=== PATIENT | female | born 1985 | race Two or more races ===

== ENCOUNTER 2019-09-21 23:35 | Emergency (ER) | payer MEDICAID, OTHER ==
[~2019-09-21] VITALS: Ht 170.2 cm; Wt 108.9 kg
[2019-09-22] MEDS ORDERED: ACETAMINOPHEN 325 MG TAB PO ONE (01:45)
[2019-09-22 01:58] LABS: Basophils # (auto) 0 10 ^3/uL (0-0.2); Basophils % (auto) 0.6 % (0.0-2.0); Eosinophils # (auto) 0 10 ^3/uL (0-0.8); Eosinophils % (auto) 0.1 % (0.0-7.0); Hematocrit 44.4 % (36.0-46.0); Hemoglobin 14.7 g/dL (12.2-16.2); Lymphocytes # (auto) 1.1 10 ^3/uL (0.4-5.4); Mean Corpuscular Hemoglobin 29.9 pg (28.0-32.0); Mean Corpuscular Hgb Conc. 33.2 g/dL (32.0-36.0); Mean Corpuscular Volume 90.3 fL (80.0-100.0); Monocytes # (auto) 0.2 10 ^3/uL (0-1.3); Monocytes % (auto) 4.9 % (0.0-12.0); Neutrophils # (auto) 3.5 10 ^3/uL (1.6-8.6); Neutrophils % (auto) 71.4 % (37.0-80.0); Nucleated Red Blood Cells % 0.1 %; Platelet Count (auto) 257 10^3/uL (140-450); Red Blood Cells 4.92 10^6/uL (4.0-5.20); Red Cell Distribution Width 12.3 % (11.8-14.3); White Blood Cell 4.9 10^3/uL (4.4-10.8)
[2019-09-22 02:08] LABS: Urine Bacteria FEW /hpf (None Seen); Urine Blood 3+ /uL (Negative); Urine Mucus FEW (None Seen); Urine WBC 49 /hpf (0 - 5)
[2019-09-22 02:17] LABS: Alanine Aminotransferase 34 U/L (13-56); Albumin 3.3 g/dL (3.4-5.0); Anion Gap 7 (5-15); Aspartate Aminotransferase 27 U/L (15-37); BUN/Creatinine Ratio 10.3; Blood Urea Nitrogen 9 mg/dL (7-18); Calcium 8.1 mg/dL (8.5-10.1); Carbon Dioxide 23 mmol/L (21-32); Chloride 106 mmol/L (98-107); GFR African American 95 mL/min; GFR Non-African American 78 mL/min; Glucose 114 mg/dL (74-106); Magnesium 2.5 mg/dL (1.6-2.6); Potassium 3.3 mmol/L (3.5-5.1); Sodium 136 mmol/L (136-145)
[2019-09-22 02:22] LABS: Alkaline Phosphatase 57 U/L (45-117); Bilirubin, Total 0.4 mg/dL (0.2-1.0); Total Protein 7.9 g/dL (6.4-8.2)
[2019-09-22 02:24] LABS: INR 1.13 (0.9-1.15); Partial Thromboplastin Time 34.2 sec (23.64-32.05)
[2019-09-22 04:30] VITALS: BP 125/72
== END 2019-09-22 05:43 | disposition home or self-care (01) ==
LOC: ER 23:35
DX: U07.1 COVID-19 (principal); J02.0 Streptococcal pharyngitis; J01.00 Acute maxillary sinusitis, unspecified
CPT/HCPCS: 36415; 71045; 80053; 81001; 82728; 83735; 83880; 84484; 85025; 85379; 85610; 85730; 87804; 87880; 99284; J7030; U0003

== ENCOUNTER 2019-09-24 21:07 | Inpatient (IN) | payer MEDICAID ==
[~2019-09-24] VITALS: Ht 170.2 cm; Wt 111.5 kg
[2019-09-25 06:00] LABS: Basophils # (auto) 0 10 ^3/uL (0-0.2); Basophils % (auto) 0.5 % (0.0-2.0); Eosinophils # (auto) 0.1 10 ^3/uL (0-0.8); Eosinophils % (auto) 1.6 % (0.0-7.0); Lymphocytes # (auto) 2.2 10 ^3/uL (0.4-5.4); Lymphocytes % (auto) 47.8 % (10.0-50.0); Mean Corpuscular Hemoglobin 30.6 pg (28.0-32.0); Mean Corpuscular Hgb Conc. 34.2 g/dL (32.0-36.0); Mean Corpuscular Volume 89.4 fL (80.0-100.0); Monocytes # (auto) 0.4 10 ^3/uL (0-1.3); Monocytes % (auto) 9.3 % (0.0-12.0); Neutrophils # (auto) 1.9 10 ^3/uL (1.6-8.6); Neutrophils % (auto) 40.8 % (37.0-80.0); Nucleated Red Blood Cells % 0.1 %; Platelet Count (auto) 299 10^3/uL (140-450); Red Blood Cells 4.91 10^6/uL (4.0-5.20); Red Cell Distribution Width 11.9 % (11.8-14.3); White Blood Cell 4.7 10^3/uL (4.4-10.8)
[2019-09-25 06:17] LABS: Albumin 3.6 g/dL (3.4-5.0); Calcium 8.8 mg/dL (8.5-10.1); Potassium 3.5 mmol/L (3.5-5.1)
[2019-09-25 06:20] LABS: BUN/Creatinine Ratio 9.9; Bilirubin, Total 0.4 mg/dL (0.2-1.0); Total Protein 8.5 g/dL (6.4-8.2)
[2019-09-25] MEDS ORDERED: DexAMETHasone SOD PHOS 10MG/1ML VIAL INJ IV ONE (06:30)
[2019-09-25] MEDS ORDERED: DOXYCYCLINE 100MG/250ML 250 ML IV ONE (06:30)
[2019-09-25] MEDS ORDERED: ACETAMINOPHEN 500 MG TAB PO PRN (06:45)
[2019-09-25] MEDS ORDERED: ONDANSETRON HCL 4 MG/2 ML VIAL IV PRN (06:45)
[2019-09-25] MEDS ORDERED: MORPHINE SULF INJ 2 MG/ML SYRINGE 1ML IV PRN (06:45)
[2019-09-25] MEDS ORDERED: NITROGLYCERIN 0.4 MG SL TAB SL PRN (06:45)
[2019-09-25 07:52] LABS: Magnesium 2.6 mg/dL (1.6-2.6)
[2019-09-25 08:01] LABS: CRP High Sensitivity 2.08 mg/dL (< 0.3)
--- NOTE | 2019-09-25 08:55 | NUR ---
Telemetry admit from ER LOPEZ SIMEON admitted to Telemetry unit after SBAR received. Patient oriented to NEREIDA SULLIVAN RN primary RN, unit, room, bed, and unit policies regarding patient care and visiting hours. Patient now on continuous telemetry monitoring, tele box # [id number] and telemetry reading on arrival to unit is SR. Patient placed on bedside oxygen, weighed by bedscale and encouraged to call if they need something. All questions and concerns addressed, patient verbalized understanding.
[2019-09-25] MEDS: CHOLECALCIFEROL (VITD3) 2,000 UNIT CAP PO SCH (11:10)
[2019-09-25] MEDS: FAMOTIDINE 20 MG TAB PO SCH ×2 (11:10→21:43)
[2019-09-25] MEDS: ZINC SULFATE 220mg CAP or TAB PO SCH (11:10)
[2019-09-25] MEDS: ASCORBIC ACID 1,000 MG TAB PO SCH (11:11)
[2019-09-25] MEDS: ENOXAPARIN SOD 40 MG/0.4 ML SYRINGE SC SCH (11:11)
[2019-09-25 13:00] VITALS: BP 123/82
[2019-09-25] MEDS ORDERED: CEPH250C2 PO (13:08)
[2019-09-25] MEDS ORDERED: AZIT500T66 PO (13:08)
[2019-09-25 17:41] VITALS: BP 107/67
--- NOTE | 2019-09-25 19:25 | NUR ---
Opening Shift Note Assumed care of patient, awake and alert. No S/S of distress/SOB or pain. Bed is locked in lowest position with call light within reach. Patient is currently on RA. Instructed on POC and to call for assist PRN, will continue to monitor for changes Q1hr and PRN.
[2019-09-25 21:15] LABS: Urine Bacteria NONE SEEN /hpf (None Seen); Urine Blood Negative /uL (Negative); Urine Mucus FEW (None Seen); Urine Specific Gravity 1.029 (1.001-1.035); Urine WBC 16 /hpf (0 - 5)
[2019-09-25] MEDS: TEMAZEPAM 15 MG CAP PO PRN (21:43)
[2019-09-25] MEDS: DOXYCYCLINE 100MG/250ML 250 ML IV SCH (21:43)
[2019-09-25 22:00] VITALS: BP 119/70
[2019-09-26 05:03] VITALS: BP 122/80
--- NOTE | 2019-09-26 06:05 | NUR ---
HOSPITALIST PAGED The patient c/o excessive coughing and states that her oxygen decreases whenever she coughs too much. The patient's oxygen saturation was 99% while the patient coughed. Will page the hospitalist for antitussive.
--- NOTE | 2019-09-26 06:55 | NUR ---
HOSPITALIST PAGE BACK Received new order for Robitussin DM 10 mg Q6HPRN.
[2019-09-26] MEDS ORDERED: guaiFENesin-DM 100/10mg/5ml SYR PO PRN (07:00)
--- NOTE | 2019-09-26 08:00 | NUR ---
ASSESSMENT NOTE PT IS ALERT ORIENTED X4, RESTING IN BED COMFORTABLY IN LOW HILL POSITION, ABLE TO SELF REPOSITION AND VERBALIS HER DEMANDS, OXYGEN 2 L NC, NON PRODUCTIVE OCCASIONAL COUGH NOTED, PAIN 0/10, CONTINUE TO HAVE LOSS OF TASTE AND SMELL, CALL LIGHT WITHIN REACH
[2019-09-26 08:33] VITALS: BP 107/63
[2019-09-26] MEDS: DexAMETHasone SOD PHOS 10MG/1ML VIAL INJ IV SCH (09:30)
[2019-09-26] MEDS: DOXYCYCLINE 100MG/250ML 250 ML IV SCH ×2 (09:30→22:12)
[2019-09-26] MEDS: ZINC SULFATE 220mg CAP or TAB PO SCH (09:31)
[2019-09-26] MEDS: ASCORBIC ACID 1,000 MG TAB PO SCH (09:31)
[2019-09-26] MEDS: FAMOTIDINE 20 MG TAB PO SCH ×2 (09:31→22:12)
[2019-09-26] MEDS: CHOLECALCIFEROL (VITD3) 2,000 UNIT CAP PO SCH (09:32)
[2019-09-26] MEDS: ENOXAPARIN SOD 40 MG/0.4 ML SYRINGE SC SCH (09:32)
[2019-09-26 09:36] LABS: Basophils # (auto) 0.2 10 ^3/uL (0-0.2); Basophils % (auto) 2.5 % (0.0-2.0); Eosinophils # (auto) 0 10 ^3/uL (0-0.8); Eosinophils % (auto) 0.2 % (0.0-7.0); Hematocrit 40.8 % (36.0-46.0); Hemoglobin 13.9 g/dL (12.2-16.2); Lymphocytes # (auto) 1.8 10 ^3/uL (0.4-5.4); Lymphocytes % (auto) 28.1 % (10.0-50.0); Mean Corpuscular Hemoglobin 30.2 pg (28.0-32.0); Mean Corpuscular Hgb Conc. 34.1 g/dL (32.0-36.0); Mean Corpuscular Volume 88.5 fL (80.0-100.0); Monocytes # (auto) 0.5 10 ^3/uL (0-1.3); Monocytes % (auto) 7.2 % (0.0-12.0); Nucleated Red Blood Cells % 0.1 %; Platelet Count (auto) 335 10^3/uL (140-450); Red Blood Cells 4.61 10^6/uL (4.0-5.20); Red Cell Distribution Width 11.9 % (11.8-14.3); White Blood Cell 6.5 10^3/uL (4.4-10.8)
[2019-09-26 10:01] LABS: Albumin 3.2 g/dL (3.4-5.0); Calcium 8.8 mg/dL (8.5-10.1); Potassium 3.5 mmol/L (3.5-5.1)
[2019-09-26 10:06] LABS: BUN/Creatinine Ratio 12.5; Bilirubin, Total 0.3 mg/dL (0.2-1.0); Total Protein 7.8 g/dL (6.4-8.2)
--- NOTE | 2019-09-26 10:30 | NUR ---
INCENTIVE SPIROMETR EDUCATION GIVEN TO PT, ABLE TO DEMONSTRATED BACK, AWARE TO DO IT 10X / HR, EXPLAIN TO PT WHY, VERBALIS UNDERSTANDING
--- NOTE | 2019-09-26 11:10 | NUR ---
IV insertion IV access obtained, via clean sterile technique by inserting 22 gauge catheter at after attempt(s). IV secured properly. No trauma to site. Patient tolerated procedure well.
[2019-09-26 12:54] VITALS: BP 117/78
[2019-09-26] MEDS ORDERED: POTASSIUM CHL 10 Meq TABLET PO ONE (14:30)
[2019-09-26] MEDS ORDERED: FUROSEMIDE 20 MG/2 ML VIAL IV ONE (14:30)
[2019-09-26] MEDS ORDERED: DEXTROSE (50%) 50ML SYRG IV PRN (14:45)
--- NOTE | 2019-09-26 14:50 | NUR ---
DR MOTA OVER THE PHONE WITH PT
--- NOTE | 2019-09-26 15:04 | NUR ---
ECG DONE SR
--- NOTE | 2019-09-26 16:30 | NUR ---
PT WAS ABLE TO AMBULATE TO BATHROOM STEADY GAIT, WITHOUT OXYGEN, NO SHORTNESS OF BREATH NOTED, THEN BACK TO BED
[2019-09-26 17:00] VITALS: BP 123/74
[2019-09-26] MEDS: InsuLIN REG 1unit/0.01ml Soln (100units/ml) SC SCH ×2 (17:00→22:00)
[2019-09-26] MEDS: ACCU-CHEK COMFORT CURVE STRIP VI SCH ×2 (17:36→22:12)
--- NOTE | 2019-09-26 18:54 | NUR ---
PT CONTINUE STABLE, occasional cough note, CONTINUE MONITORING
--- NOTE | 2019-09-26 19:20 | NUR ---
Opening Shift Note Assumed care of patient, awake and alert. No S/S of distress/SOB or pain. Patient is currently on RA. Bed is locked in lowest position with call light within reach. Instructed on POC and to call for assist PRN, will continue to monitor for changes Q1hr and PRN.
[2019-09-26 22:00] VITALS: BP 110/69
--- NOTE | 2019-09-26 22:05 | NUR ---
MEDICATION REFUSED The patient refused her scheduled insulin. The patient's glucose level is 196
[2019-09-26] MEDS: BUDESONIDE (INHALATION) 180 MCG IH IN SCH (22:30)
[2019-09-26] MEDS: ALBUTEROL SULF HFA 90MCG INH 200DOSE IN SCH (22:30)
[2019-09-27] VITALS (7 sets, daily range): BP systolic 102–118; BP diastolic 59–70
--- NOTE | 2019-09-27 | NUR ---
IV REMOVED The patient reported pain at her right hand IV site. IV site was flushed without additional pain but the patient stated that she wants it out. IV has been removed. Will insert a new IV.
--- NOTE | 2019-09-27 00:15 | NUR ---
IV insertion IV access obtained, via clean sterile technique by inserting 22 gauge catheter at left hand after 2 attempt(s). IV secured properly. No trauma to site. Patient tolerated well.
[2019-09-27] MEDS: BUDESONIDE (INHALATION) 180 MCG IH IN SCH ×2 (06:00→22:00)
[2019-09-27] MEDS: ALBUTEROL SULF HFA 90MCG INH 200DOSE IN SCH ×3 (06:00→22:00)
[2019-09-27] MEDS: InsuLIN REG 1unit/0.01ml Soln (100units/ml) SC SCH ×4 (07:00→22:00)
[2019-09-27] MEDS: ACCU-CHEK COMFORT CURVE STRIP VI SCH ×4 (07:00→22:21)
[2019-09-27] MEDS: DOXYCYCLINE 100MG/250ML 250 ML IV SCH ×2 (09:20→22:34)
[2019-09-27] MEDS: CHOLECALCIFEROL (VITD3) 2,000 UNIT CAP PO SCH (09:23)
[2019-09-27] MEDS: FUROSEMIDE 20 MG/2 ML VIAL IV SCH (09:23)
[2019-09-27] MEDS: POTASSIUM CHL 10 Meq TABLET PO SCH (09:23)
[2019-09-27] MEDS: ASCORBIC ACID 1,000 MG TAB PO SCH (09:23)
[2019-09-27] MEDS: DexAMETHasone SOD PHOS 10MG/1ML VIAL INJ IV SCH (09:23)
[2019-09-27] MEDS: ZINC SULFATE 220mg CAP or TAB PO SCH (09:24)
[2019-09-27] MEDS: FAMOTIDINE 20 MG TAB PO SCH ×2 (09:24→22:34)
[2019-09-27] MEDS: ENOXAPARIN SOD 40 MG/0.4 ML SYRINGE SC SCH (09:25)
--- NOTE | 2019-09-27 12:30 | NUR ---
Respiratory note: ABG NOT DONE. SPO2 IS 100% ON ROOM AIR AFTER AMBULATING PATIENT. RN AWARE
--- NOTE | 2019-09-27 13:19 | NUR ---
pt seen by Dr. Prince, made aware ABG was not done, pt's O2 sat was 100% room air after a walk. Dr. Prince told pt she can go home but pt requested to stay 1 more day.
--- NOTE | 2019-09-27 19:15 | NUR ---
Opening Shift Note Assumed care of patient. Patient is awake, alert, and oriented x 4. No S/S of respiratory distress/SOB and pain noted or reported. Respirations are regular and non-labored. On RA with SpO2 96%. Bed in lowest position, brakes locked, side rail up X 2, call light within reach. POC discussed with the patient. Patient instructed to call for assistance as needed. Will continue to monitor for changes Q1hr and PRN.
--- NOTE | 2019-09-27 22:30 | NUR ---
Refused med Patient refused insulin injection for blood glucose level of 175 mg/dl. Patient was educated about high blood glucose level complications and importance of insulin injections to decrease glucose level. Patient refused saying that level is not high and she will get insulin injection if her blood glucose level will be above 200 mg/dl.
[2019-09-27] MEDS: TEMAZEPAM 15 MG CAP PO PRN (22:35)
--- NOTE | 2019-09-27 23:40 | NUR ---
IV DC/insertion Patient reports pain and burning at insertion site. L hand IV DC'd with sterile technique, catheter fully intact. Pressure dressing applied to site. Patient tolerated procedure well. New IV access obtained via clean sterile technique by inserting 24 gauge catheter at R. hand after 1 attempt. IV secured properly. No trauma to site. Patient tolerated procedure well. Will continue to monitor PRN.
[2019-09-28 05:00] VITALS: BP 116/76
[2019-09-28] MEDS: ACCU-CHEK COMFORT CURVE STRIP VI SCH ×2 (06:15→11:30)
[2019-09-28] MEDS: InsuLIN REG 1unit/0.01ml Soln (100units/ml) SC SCH ×2 (06:25→11:30)
[2019-09-28] MEDS: ALBUTEROL SULF HFA 90MCG INH 200DOSE IN SCH ×3 (06:47→14:08)
[2019-09-28] MEDS: BUDESONIDE (INHALATION) 180 MCG IH IN SCH (07:09)
[2019-09-28 08:55] VITALS: BP 103/63
[2019-09-28] MEDS: ZINC SULFATE 220mg CAP or TAB PO SCH (09:37)
[2019-09-28] MEDS: DexAMETHasone SOD PHOS 10MG/1ML VIAL INJ IV SCH (09:37)
[2019-09-28] MEDS: DOXYCYCLINE 100MG/250ML 250 ML IV SCH (09:37)
[2019-09-28] MEDS: FAMOTIDINE 20 MG TAB PO SCH (09:38)
[2019-09-28] MEDS: POTASSIUM CHL 10 Meq TABLET PO SCH (09:38)
[2019-09-28] MEDS: CHOLECALCIFEROL (VITD3) 2,000 UNIT CAP PO SCH (09:38)
[2019-09-28] MEDS: FUROSEMIDE 20 MG/2 ML VIAL IV SCH (09:38)
[2019-09-28] MEDS: ASCORBIC ACID 1,000 MG TAB PO SCH (09:38)
[2019-09-28] MEDS: ENOXAPARIN SOD 40 MG/0.4 ML SYRINGE SC SCH (11:04)
[2019-09-28 13:08] VITALS: BP 112/71
--- NOTE | 2019-09-28 16:08 | NUR ---
Discharge instructions given as ordered. Encourage to follow up with PMD as instructed. Instructed to follow up with pcp in 2 weeks. Instructed to self-isolate and take all medications as M.D. orders.All questions and concerns addressed. Patient verbalized understanding. Medication reconciliation form completed and copy given to patient. IV removed with catheter intact, pressure dressing applied. Telemetry unit returned to ICU. Patient taken to vehicle via wheelchair with all personal belongings, accompanied by staff and family member. No distress noted at time of departure.
== END 2019-09-28 16:15 | disposition home or self-care (01) | DRG 137 ==
LOC: ER 21:07 → TELE 21:08 → TELE-EAST 09-25 09:10
PROVIDERS: ADMIT Nurse Practitioner; ATTEND Internal Medicine
DX: U07.1 COVID-19 (principal); J12.89 Other viral pneumonia; J01.00 Acute maxillary sinusitis, unspecified; E03.9 Hypothyroidism, unspecified; J96.00 Acute respiratory failure, unspecified whether with hypoxia or hypercapnia; E66.9 Obesity, unspecified; Z68.38 Body mass index [BMI] 38.0-38.9, adult; Z88.5 Allergy status to narcotic agent
CPT/HCPCS: 36415; 71045; 80053; 81001; 82728; 82962; 83605; 83615; 83735; 84443; 85025; 85379; 86141; 94640; 96365; 96372; 96375; G0378; J1100; J3490

== ENCOUNTER 2024-01-12 03:15 | Emergency (ER) | payer BC, MEDICAID ==
[~2024-01-12] VITALS: Ht 167.6 cm; Wt 117.8 kg
[~2024-01-12 03:15] MED LIST: AZIT500T66 PO; CEPH250C2 PO
--- NOTE | 2024-01-12 04:37 | ED.PDOC ---
Eye-HPI HPI Comments This is a 38-year-old female presents to the ED chief complaint of cold-like symptoms x4 days. Patient reports cough, sore throat, runny nose, shortness of breath, and subjective fevers at home. She reports history of pneumonia in the past. She states also history of fluid in her lungs. She reports when she lays down she gave comes more short of breath. 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 She denies dyspnea on exertion, chest pain, recent travel, abdominal pain, nausea or vomiting. Chief Complaint: Flu like Time Seen by MD: 03:33 Primary Care Provider: CARTER Reviewed Notes: Nurses Notes, Medications, Allergies Allergies: Coded Allergies: Morphine (Verified Allergy, Unknown, 09/25/19) No Known Drug Allergy (Verified Allergy, Unknown, 09/25/19) Home Meds Active Scripts Methylprednisolone (Medrol Dosepak) 4 Mg Basil, 4 MG PO UD for 6 Days, #21 TAB UAD Prov:SALTY PAULSON [facility] 01/12/24 Azithromycin (Azithromycin) 250 Mg Tab, 250 MG PO DAILY MDD 500 for 5 Days, #6 TAB 0 Refills 2 TABLETS ORALLY ON DAY ONE, THEN 1 TABLET ORALLY DAILY FOR 4 DAYS Prov:SALTY PAULSON [facility] 01/12/24 Reported Medications Cephalexin Base (Cephalexin) 250 Mg Cap, 250 MG PO Q12HP, MG 09/25/19 Azithromycin (Azithromycin) 500 Mg Tab, 500 MG PO DAILY 09/25/19 Information Source: Patient Mode of Arrival: Ambulatory Past Medical History PAST MEDICAL HISTORY: Denies Surgical History: Denies all surgeries STOCK ORDER LISTER History: No Pertinent STOCK ORDER LISTER History Family History Family History: Reviewed,noncontributory to illness Social History Smoker: Non-Smoker Alcohol: Denies ETOH Use Drugs: Denies Drug Use Lives In: Home Constitutional: reports: chills, fever; denies: diaphoresis, fatigue, malaise, sweats, weakness, others EENTM: reports: nasal discharge, throat pain; denies: blurred vision, double vision, ear bleeding, ear discharge, ear drainage, ear pain, ear ringing, eye pain, eye redness, hearing loss, mouth pain, mouth swelling, nose bleeding, nose congestion, nose pain, photophobia, tearing, throat swelling, voice changes, others Respiratory: reports: cough; denies: hemoptysis, orthopnea, SOB at rest, shortness of breath, SOB with excertion, stridor, wheezing, others Cardiovascular: denies: chest pain, dizzy spells, diaphoresis, Dyspnea on exertion, edema, irregular heart beat, left arm pain, lightheadedness, palpitations, PND, syncope, others Gastrointestinal: denies: abdomen distended, abdominal pain, blood streaked bowels, constipated, diarrhea, dysphagia, difficulty swallowing, hematemesis, melena, nausea, poor appetite, poor fluid intake, rectal bleeding, rectal pain, vomiting, others Genitourinary: denies: abnormal vagina bleeding, burning, dyspareunia, dysuria, flank pain, frequency, hematuria, incontinence, pain, , vagina discharge, urgency, others Neurological: denies: dizziness, fainting, headache, left sided numbness, left sided weakness, numbness, paresthesia, pre-existing deficit, right sided numbness, right sided weakness, seizure, speech problems, tingling, tremors, weakness, others Musculoskeletal: denies: back pain, gout, joint pain, joint swelling, muscle pain, muscle stiffness, neck pain, others Integumetry: denies: bruises, change in color, change in hair/nails, dryness, laceration, lesions, lumps, rash, wounds, others Allergic/Immunocompromised: denies: Difficulty Healing, Frequent Infections, H brennon, Itching, others Hematologic/Lymphatic: denies: anemia, blood clots, easy bleeding, easy bruising, swollen glands, others Endocrine: denies: excessive hunger, excessive sweating, excessive thirst, excessive urination, flushing, intolerance to cold, intolerance to heat, unexplained weight gain, unexplained weight loss, others Psychiatric: denies: anxiety, bipolar disorder, depression, hopeless, panic disorder, schizophrenia, sleepless, suicidal, others Physical Exam General Appearance: No Apparent Distress, Normal HEENT: Normal ENT Inspection, Pharyngeal Erythema, TMs Normal, Other (Bilateral nasal greenish discharge) Neck: Full Range of Motion, Non-Tender Respiratory: Decreased Breath Sounds, No Accessory Muscle Use, No Respiratory Distress Cardiovascular: No Edema, No JVD, No Murmur, No Gallop, Normal Peripheral Pulses, Regular Rate/Rhythm Breast Exam: Deferred Gastrointestinal: Non Tender, Soft Genitalia: Deferred Pelvic: Deferred Rectal: Deferred Extremities: Normal capillary refill, Normal inspection, Normal range of motion, Non-tender, No pedal edema Musculoskeletal : Apperance: Normal Neurologic: Alert, tie sawyer II-XII nml as Tested, No Motor Deficits, Normal Affect, Normal Mood, No Sensory Deficits Cerebellar Function: Normal Reflexes: Normal Skin: Dry, Normal Color, Warm Lymphatic: No Adenopathy Was a procedure done? Was a procedure done?: No EENT DIFF Eye: N/A Sore Throat: Streptococcal X-Ray, Labs, Meds, VS Vital Signs Date Time Temp Pulse Resp B/P (MAP) Pulse Ox O2 Delivery O2 Flow Rate FiO2 01/12/24 03:20 98.2 87 18 143/90 (107) 97 X-Ray, Labs, Meds, VS Comment Chest x-ray shows no cardiopulmonary acute findings. This is likely upper re spiratory infection. We will prescribing hold azithromycin Z-Basil. We will start patient on Medrol Dosepak. Advised to follow up with PCP in 2-3 days as necessary. Advised to rest, increase p.o. fluids with electrolytes, [id number] Tylenol or Motrin as needed for pain or fever. Advised to return to the ER for difficulty breathing, increased shortness of breath, chest pain, continued high fevers, or any concerning symptoms. Patient agrees with discharge plan of care. Time of 1ST Reevaluation: 04:51 Reevaluation 1ST: Improved Patient Education/Counseling: Diagnosis, Treatment, Prognosis, Need For Follow Up Family Education/Counseling: No Family Present Departure 1 Departure Time of Disposition: 05:01 Impression: Primary Impression: Upper respiratory infection Qualified Codes: J06.9 - Acute upper respiratory infection, unspecified Disposition: 01 HOME / SELF CARE / HOMELESS Condition: Stable e-Prescriptions Methylprednisolone (Medrol Dosepak) 4 Mg Basil 4 MG PO UD for 6 Days, #21 TAB UAD Prov: SALTY PAULSON 01/12/24 Azithromycin (Azithromycin) 250 Mg Tab 250 MG PO DAILY MDD 500 for 5 Days, #6 TAB 0 Refills 2 TABLETS ORALLY ON DAY ONE, THEN 1 TABLET ORALLY DAILY FOR 4 DAYS Prov: SALTY PAULSON 01/12/24 Discharged With: Self Critical Care Note Critical Care Time?: No Stability Stability form required: ASLTY Garcia Jan 12, 2024 04:37
[2024-01-12] MEDS ORDERED: AZIT-43 PO (04:49)
[2024-01-12] MEDS ORDERED: METH4PAK PO (04:49)
[2024-01-12 05:06] VITALS: BP 142/87; PULSE 88; RESP 19; TEMP 98.3; O2SAT 98
--- NOTE | 2024-01-12 05:18 | DVH ---
CHEST RADIOGRAPH Indication:sob Technique: Frontal and lateral view of the chest was obtained Comparison: None FINDINGS: Lines and Tubes: None Lungs: Clear Pleura: No effusion. No pneumothorax. Cardiomediastinal contours: Unremarkable Bones: Unremarkable IMPRESSION: No evidence of acute disease.
== END 2024-01-12 05:16 | disposition home or self-care (01) ==
LOC: ER 03:15
DX: J06.9 Acute upper respiratory infection, unspecified (principal); Z88.5 Allergy status to narcotic agent; Z79.899 Other long term (current) drug therapy
CPT/HCPCS: 71046

== ENCOUNTER 2024-07-04 09:28 | Inpatient (IN) | payer BC, MEDICAID ==
[~2024-07-04] VITALS: Ht 170.2 cm; Wt 121.8 kg
[~2024-07-04 09:28] MED LIST changes: +AZIT-43 PO; +METH4PAK PO
[2024-07-04 10:05] LABS: Urine Bacteria None Seen /hpf (None Seen)
[2024-07-04 10:22] LABS: Urine Blood TRACE /uL (Negative); Urine Clarity Clear (Clear); Urine Color Yellow (Yellow); Urine Mucus FEW (None Seen); Urine Protein, UAD Negative (Negative); Urine Squamous Epithelial Cell MOD /hpf (<5); Urine Urobilinogen Normal (Negative); Urine WBC 5 /HPF (0-5)
--- NOTE | 2024-07-04 10:25 | ED.PDOC ---
HPI (NEURO) HPI Comments A 39 YEAR OLD FEMALE PRESENTS TO THE ED WITH COMPLAINT OF HEADACHE. PATIENT STATES SHE HAS BEEN EXPERIENCING A HEADACHE WITH LIGHT SENSITIVITY AND NAUSEA FOR THE PAST 3 DAYS. PATIENT NOTES SHE WAS ALSO HAD A FEVER OFF AND ON FOR THE PAST 2 DAYS. PATIENT REPORTS SHE WAS ALSO BEEN EXPERIENCING FOUL-SMELLING URINE FOR THE PAST 3 DAYS AND WOULD LIKE TO BE EVALUATED FOR POSSIBLE URINARY TRACT INFECTION. PATIENT DENIES DYSURIA, HEMATURIA, FLANK PAIN, SHORTNESS OF BREATH, CHEST PAIN, ABDOMINAL PAIN, OR OTHER COMPLAINTS. NO OTHER SYMPTOMS OR MODIFYING FACTORS AT THIS TIME. PATIENT IS ALERT, ORIENTED X 4, AND HAS STEADY GAIT. Chief Complaint: HEADACHE Time Seen by MD: 09:48 Primary Care Provider: CARTER Reviewed Notes: Nurses Notes, Medications, Allergies Information Source: Patient Mode of Arrival: Ambulatory Severity: Moderate Headache Severity: Moderate Timing: Days Duration: Since onset, Days Prehospital treatment: None Headache Quality: Aching, Tight Headache Location: Generalized Onset: At rest Circumstances: Spontaneous Symptoms: Other (HEADACHE, NAUSEA) Modifying factors: Light Associated Signs and Symptoms: Headache, Nausea Past Medical History PAST MEDICAL HISTORY: Denies Surgical History: Denies all surgeries RIPRAP WORKER History: No Pertinent RIPRAP WORKER History Family History Family History: Reviewed,noncontributory to illness Social History Smoker: Non-Smoker Alcohol: Denies ETOH Use Drugs: Denies Drug Use Lives In: Home Constitutional: reports: fever, others (ANXIOUS ); denies: chills, diaphoresis, fatigue, malaise, sweats, weakness EENTM: reports: photophobia; denies: blurred vision, double vision, ear bleeding, ear discharge, ear drainage, ear pain, ear ringing, eye pain, eye redness, hearing loss, mouth pain, mouth swelling, nasal discharge, nose bleeding, nose congestion, nose pain, tearing, throat pain, throat swelling, voice changes, others Respiratory: denies: cough, hemoptysis, orthopnea, SOB at rest, shortness of breath, SOB with excertion, stridor, wheezing, others Cardiovascular: denies: chest pain, dizzy spells, diaphoresis, Dyspnea on exertion, edema, irregular heart beat, left arm pain, lightheadedness, palpitations, PND, syncope, others Gastrointestinal: reports: nausea; denies: abdomen distended, abdominal pain, blood streaked bowels, constipated, diarrhea, dysphagia, difficulty swallowing, hematemesis, melena, poor appetite, poor fluid intake, rectal bleeding, rectal pain, vomiting, others Genitourinary: denies: abnormal vagina bleeding, burning, dyspareunia, dysuria, flank pain, frequency, hematuria, incontinence, pain, , vagina discharge, urgency, others Neurological: reports: headache; denies: dizziness, fainting, left sided numbness, left sided weakness, numbness, paresthesia, pre-existing deficit, right sided numbness, right sided weakness, seizure, speech problems, tingling, tremors, weakness, others Musculoskeletal: denies: back pain, gout, joint pain, joint swelling, muscle pain, muscle stiffness, neck pain, others Integumetry: denies: bruises, change in color, change in hair/nails, dryness, laceration, lesions, lumps, rash, wounds, others Allergic/Immunocompromised: denies: Difficulty Healing, Frequent Infections, Hives, Itching, others Hematologic/Lymphatic: denies: anemia, blood clots, easy bleeding, easy bruising, swollen glands, others Endocrine: denies: excessive hunger, excessive sweating, excessive thirst, excessive urination, flushing, intolerance to cold, intolerance to heat, unexplained weight gain, unexplained weight loss, others Psychiatric: denies: anxiety, bipolar disorder, depression, hopeless, panic disorder, schizophrenia, sleepless, suicidal, others All Other Systems: Reviewed and Negative Physical Exam General Appearance: Mild Distress, Obese HEENT: Normal ENT Inspection, PERRL/EOMI, Pharynx Normal, TMs Normal Neck: Full Range of Motion, Non-Tender, Normal, Normal Inspection Respiratory: Chest Non-Tender, Lungs Clear, No Accessory Muscle Use, No Respiratory Distress, Normal Breath Sounds Cardiovascular: No Edema, No JVD, No Murmur, No Gallop, Normal Peripheral Pulses, Regular Rate/Rhythm Breast Exam: Deferred Gastrointestinal: No Organomegaly, Non Tender, No Pulsatile Mass, Normal Bowel Sounds, Soft Genitalia: Deferred Pelvic: Deferred Rectal: Deferred Extremities: No calf tenderness, Normal capillary refill, Normal inspection, Normal range of motion, Non-tender, No pedal edema Musculoskeletal : Apperance: Normal Neurologic: Alert, chief radiologic technologist II-XII nml as Tested, No Motor Deficits, Normal Affect, Normal Mood, No Sensory Deficits Cerebellar Function: Normal Reflexes: Normal Skin: Dry, Normal Color, Warm Peripheral Pulses: 2+ carotid (R), 2+ carotid (L) Lymphatic: No Adenopathy Was a procedure done? Was a procedure done?: No Differential Diagnosis (SZ) Seizure: N/A General Weakness: N/A Headache: Cluster, Migraine, Epidural Hemorrhage, Intracerebral Hemorrhage, Subdural Hemorrhage, Sinusitis X-Ray, Labs, Meds, VS Vital Signs Date Time Temp Pulse Resp B/P (MAP) Pulse Ox O2 Delivery O2 Flow Rate FiO2 07/04/24 14:12 98.1 78 16 126/66 (86) 98 98.1 07/04/24 10:12 89 16 95 Room Air 07/04/24 10:12 99.8 89 16 142/83 (102) 95 99.8 07/04/24 09:32 99.8 89 16 142/83 (102) 95 99.8 Lab Test 07/04/24 13:13 07/04/24 11:02 07/04/24 10:20 07/04/24 09:37 Range/Units Lactic Acid Level 1.2 11.4 *H 0.4-2.0 mmol/L White Blood Count 8.0 4.4-10.8 10^3/uL Red Blood Count 4.93 4.0-5.20 10^6/uL Hemoglobin 14.5 12.2-16.2 g/dL Hematocrit 42.8 36.0-46.0 % Mean Corpuscular Volume 86.8 80.0-100.0 fL Mean Corpuscular Hemoglobin 29.4 28.0-32.0 pg Mean Corpuscular Hemoglobin Concent 33.8 32.0-36.0 g/dL Red Cell Distribution Width 12.5 11.8-14.3 % Platelet Count 341 140-450 10^3/uL Mean Platelet Volume 7.9 6.9-10.8 fL Neutrophils (%) (Auto) 64.3 37.0-80.0 % Lymphocytes (%) (Auto) 30.1 10.0-50.0 % Monocytes (%) (Auto) 3.8 0.0-12.0 % Eosinophils (%) (Auto) 1.0 0.0-7.0 % Basophils (%) (Auto) 0.8 0.0-2.0 % Neutrophils # (Auto) 5.2 1.6-8.6 10 ^3/uL Lymphocytes # (Auto) 2.4 0.4-5.4 10 ^3/uL Monocytes # (Auto) 0.3 0-1.3 10 ^3/uL Eosinophils # (Auto) 0.1 0-0.8 10 ^3/uL Basophils # (Auto) 0.1 0-0.2 10 ^3/uL Nucleated Red Blood Cells 0.1 % Sodium Level 137 136-145 mmol/L Potassium Level 3.9 3.5-5.1 mmol/L Chloride Level 102 98-107 mmol/L Carbon Dioxide Level 26 20-31 mmol/L Anion Gap 9 5-15 Blood Urea Nitrogen 9 9-23 mg/dL Creatinine 0.84 0.550-1.02 mg/dL Glomerular Filtration Rate Calc 89 >90 mL/min BUN/Creatinine Ratio 10.7 10.0-20.0 Serum Glucose 115 H 74-106 mg/dL Calcium Level 9.7 8.7-10.4 mg/dL C-Reactive Protein High Sensitivity 1.54 H <1.0 mg/dL Urine Color Yellow Yellow Urine Clarity Clear Clear Urine pH 5.0 5.0-9.0 Urine Specific [place] 1.020 1.001-1.035 Urine Protein Negative Negative Urine Ketones Negative Negative Urine Blood Trace H Negative /uL Urine Nitrite Negative Negative Urine Bilirubin Negative Negative Urine Urobilinogen Normal Negative mg/dL Urine Leukocyte Esterase Trace Negative /uL Urine RBC 1 0 - 4 /hpf Urine Microscopic WBC 5 0-5 /HPF Urine Squamous Epithelial Cells Mod <5 /hpf Urine Bacteria None seen None Seen /hpf Urine Mucus Few None Seen Urine Glucose Normal Normal mg/dL Urine Test Pending Current Medications Medications (Trade) Dose Ordered Sig/Lyndsey Route Start Time Stop Time Status Last Admin Ketorolac Tromethamine (Toradol Injection) 60 mg ONCE ONCE IM 07/04/24 11:00 07/04/24 11:01 DC 07/04/24 11:13 CT HEAD WITHOUT CONTRAST INDICATION: HEADACHE : 39 old Female HEADACHE EXAM DATE: 07/04/2024 10:18 AM COMPARISON: None RADIATION DOSE: CTDIvol: 66.5 mGy, DLP: 1177.03 mGy*cm PROCEDURE: CT scans of the head were obtained from the vertex to the skull base. Sagittal and coronal reconstructions were provided. All CT scans at this medical facility are performed using dose modulation techniques as appropriate to a performed exam including the following: Automated exposure control was utilized; adjustment of the MA and/or KV according to patient size; and use of iterative reconstruction technique. FINDINGS: There is sulcal and ventricular prominence. The brainshows normal morphology and valdez-white matter differentiation, without intracranial hemorrhage, extra-axial fluid collection, mass effect or acute large vessel infarct. The ventricles are normal in size. The basal cisterns are patent. The skull and visible facial bones are intact. The paranasal sinuses, mastoid air cells and middle ear cavities are well-aerated. The soft tissues of the scalp are unremarkable. IMPRESSION: No acute intracranial abnormality. ATED BY: DAJUAN ELLIS MD DICTATED DATE/TIME: 07/04/24 104 SIGNED BY: DAJUAN ELLIS MD SIGNED DATE/TIME: 07/04/24 104 CC: EXAM: XY CHEST TWO VIEWS ROUTINE CLINICAL HISTORY: POSSIBLE FEVER COMPARISON: XY CHEST TWO VIEWS ROUTINE on DOS: 01/12/24 TECHNIQUE: Frontal and lateral view of the chest was obtained FINDINGS: Lines and Tubes: None Lungs: No focal consolidation. Pleura: No effusion. No pneumothorax. Cardiomediastinal contours: Unremarkable Bones: No acute osseous abnormality. IMPRESSION: No acute cardiopulmonary disease. ATED BY: BONNIE CARPIO MD DICTATED DATE/TIME: 07/04/24 1311 SIGNED BY: BONNIE CARPIO MD SIGNED DATE/TIME: 07/04/24 1311 CC: X-Ray, Labs, Meds, VS Comment EXTERNAL MEDICAL RECORDS REVIEWED: [NONE] INDEPENDENT HISTORIANS: [NONE] SOCIAL DETERMINANTS OF HEALTH: [NONE] LABS ORDERED: CBC, BMP, UA, UDS, LACTIC ACID W/REFLEX X2, BLOOD CULTURE REVIEWED AND INTERPRETED RESULTS: LEUKOCYTES TRACE, LACTIC ACID 11.4, LACTIC ACID 1.2 IMAGING ORDERED: CT BRAIN, XR CHEST TREATMENTS ORDERED: TORADOL 60 MG IM, IMITREX 6 MG IM, 0.9 NS 150ML/HOUR PROCEDURES PERFORMED: NONE CRITICAL CARE TIME: NONE I HAVE DISCUSSED THE PATIENT WITH THE ATTENDING PHYSICIAN DR. ALMAGUER AND HE AGREES WITH THE PATIENT'S PLAN OF CARE. UPON MY PHYSICAL EXAMINATION, THE PATIENT WAS WELL-APPEARING, BUT STILL COMPLAINING OF A HEADACHE DESPITE TREATMENT. PATIENT'S 2ND LACTIC ACID ALSO CAME BACK NORMAL, HOWEVER SINCE THE PATIENT IS NOT IMPROVING WAS ANY TREATMENT AND HER COMPLAINING OF A FEVER OF UNKNOWN ORIGIN, I HAVE DETERMINED THE PATIENT NEEDS TO BE ADMITTED FOR FURTHER TREATMENT EVALUATION Images Reviewed?: Images reviewed and evaluated by me Time of 1ST Reevaluation: 11:32 Reevaluation 1ST: Unchanged Time of 2ND Reevaluation: 14:29 Reevaluation 2ND: Unchanged Patient Education/Counseling: Diagnosis, Treatment Family Education/Counseling: Diagnosis, Treatment Departure 1 Departure Time of Disposition: 14:00 Impression: Primary Impression: Status migrainosus Additional Impression: Fever of unknown origin Disposition: ADMITTED INPATIENT Condition: Serious Critical Care Note Critical Care Time?: No Stability Stability form required: No Unstable for transfer: Requires medication, ED Physician Assesment, Possible rapid decline Heart Score Heart Score: Heart Score Response (Comments) Value History N/A 0 EKG N/A 0 Age N/A 0 Risk Factors N/A 0 Troponin N/A 0 Total 0 I personally scribed for ANKITA MATAMOROS ([email or web address]) on 07/04/24 at 10:25. Elec tronically submitted by Rober Keys ([email or web address]). I personally scribed for ANKITA MATAMOROS ([email or web address]) on 07/04/24 at 10:57. Electr onically submitted by Rober Keys ([employer]). I personally scribed for ANKITA MATAMOROS ([email or web address]) on 07/04/24 at 11:25. Electron ically submitted by Rober Keys ([email or web address]). I personally scribed for SHANAE ALMAGUER MD ([email or web address]) on 07/04/24 at 13:54. Electronically submitted by Rober Keys ([employer]). I personally scribed for SHANAE ALMAGUER MD ([email or web address]) on 07/04/24 at 14:00. Electr onically submitted by Rober Keys ([email or web address]). I personally scribed for SHANAE ALMAGUER MD ([email or web address]) on 07/04/24 at 14:13. Elect ronically submitted by Rober Keys ([employer]). ANKITA MATAMOROS July 04, 2024 10:25 SHANAE ALMAGUER MD July 04, 2024 13:54
--- NOTE | 2024-07-04 10:44 | DVH ---
CT HEAD WITHOUT CONTRAST INDICATION: HEADACHE : 39 old Female HEADACHE EXAM DATE: 07/04/2024 10:18 AM COMPARISON: None RADIATION DOSE: CTDIvol: 66.5 mGy, DLP: 1177.03 mGy*cm PROCEDURE: CT scans of the head were obtained from the vertex to the skull base. Sagittal and coronal reconstructions were provided. All CT scans at this medical facility are performed using dose modulation techniques as appropriate t o a performed exam including the following: Automated exposure control was utilized; adjustment of th e MA and/or KV according to patient size; and use of iterative reconstruction technique. FINDINGS: There is sulcal and ventricular prominence. The brainshows normal morphology and valdez-whi te matter differentiation, without intracranial hemorrhage, extra-axial fluid collection, mass effect or acute large vessel infarct. The ventricles are normal in size. The basal cisterns are patent. The skull and visible facial bones are intact. The paranasal sinuses, mastoid air cells and middle ear c avities are well-aerated. The soft tissues of the scalp are unremarkable. IMPRESSION: No acute intracranial abnormality.
[2024-07-04 10:50] LABS: Basophils # (auto) 0.1 10 ^3/uL (0-0.2); Basophils % (auto) 0.8 % (0.0-2.0); Eosinophils # (auto) 0.1 10 ^3/uL (0-0.8); Hematocrit 42.8 % (36.0-46.0); Hemoglobin 14.5 g/dL (12.2-16.2); Lymphocytes # (auto) 2.4 10 ^3/uL (0.4-5.4); Lymphocytes % (auto) 30.1 % (10.0-50.0); Mean Corpuscular Hemoglobin 29.4 pg (28.0-32.0); Mean Corpuscular Hgb Conc. 33.8 g/dL (32.0-36.0); Mean Corpuscular Volume 86.8 fL (80.0-100.0); Monocytes # (auto) 0.3 10 ^3/uL (0-1.3); Monocytes % (auto) 3.8 % (0.0-12.0); Neutrophils # (auto) 5.2 10 ^3/uL (1.6-8.6); Neutrophils % (auto) 64.3 % (37.0-80.0); Nucleated Red Blood Cells % 0.1 %; Platelet Count (auto) 341 10^3/uL (140-450); Red Blood Cells 4.93 10^6/uL (4.0-5.20); Red Cell Distribution Width 12.5 % (11.8-14.3)
[2024-07-04 10:57] LABS: Chloride 102 mmol/L (98-107); Potassium 3.9 mmol/L (3.5-5.1); Sodium 137 mmol/L (136-145)
[2024-07-04 10:58] LABS: Anion Gap 9 (5-15); Calcium 9.7 mg/dL (8.7-10.4); Carbon Dioxide 26 mmol/L (20-31)
[2024-07-04 11:03] LABS: BUN/Creatinine Ratio 10.7 (10.0-20.0)
[2024-07-04 11:04] LABS: Blood Urea Nitrogen 9 mg/dL (9-23); Glucose 115 mg/dL (74-106)
[2024-07-04] MEDS: KETOROLAC TROMETH 60MG/2ML VIAL IM ONE (11:13)
[2024-07-04] MEDS ORDERED: ZOFR4T PO (11:31)
[2024-07-04] MEDS ORDERED: SUMA50TA2 PO (11:31)
[2024-07-04] MEDS ORDERED: NITR-87 PO (11:31)
[2024-07-04 11:48] LABS: Lactic Acid w/Reflex 11.4 mmol/L (0.4-2.0)
--- NOTE | 2024-07-04 13:13 | DVH ---
EXAM: XY CHEST TWO VIEWS ROUTINE CLINICAL HISTORY: POSSIBLE FEVER COMPARISON: XY CHEST TWO VIEWS ROUTINE on DOS: 01/12/24 TECHNIQUE: Frontal and lateral view of the chest was obtained FINDINGS: Lines and Tubes: None Lungs: No focal consolidation. Pleura: No effusion. No pneumothorax. Cardiomediastinal contours: Unremarkable Bones: No acute osseous abnormality. IMPRESSION: No acute cardiopulmonary disease.
[2024-07-04] MEDS: SUMAtriptan SUCCINATE 6 MG/0.5 ML VL SC ONE (15:33)
[2024-07-04] MEDS: SODIUM CHLORIDE 0.9% 1,000 ML IV ONE (20:28)
--- NOTE | 2024-07-04 23:50 | DVHHPRES ---
History of Present Illness Resident Creating Document: ROBINSON FRANK RESIDENT History of Present Illness Patient is a 39-year-old female with past medical history of hypothyroidism and hypertension who comes in due to headache. According to the patient she has been having a headache for the last 3 days which started when she was shopping at the store, associated with hot flashes and feeling faint. Patient denies having similar symptoms in the past. Patient notes the Tylenol, Motrin and Advil did not help her pain, sleeping makes the pain worse and pain is also associated with generalized weakness, photosensitivity and multiple episodes of vomiting. On review of systems patient is complaining of fatigue, fever, chills, nausea and vomiting. Head CT was largely unremarkable. On admission patient was noted to have a lactic acid level of 11.4 which was down to 1.2 within 2 hours. Patient does not have any nuchal rigidity, however, notes mild soreness at the base of neck on flexion of the neck. Upon re-evaluation a couple hours later, patient also noted to have a throbbing pain along her right lateral face. Patient will be admitted for further management. Past Medical History Hypothyroidism, hypertension Past Surgical History section Smoke: No ALCOHOL: none Drugs: None Review of Systems Constitutional: Yes: Fever, Chills, Malaise; No: Sweats, Weakness, Other Eyes: No: Pain, Vision change, Conjunctivae inflammation, Eyelid inflammation, Other, Redness ENT: No: Ear pain, Ear discharge, Nose pain, Nose discharge, Nose congestion, Mouth pain, Mouth swelling, Throat pain, Throat swelling, Other Respiratory: No: Cough, Dry, Shortness of breath, SOB with excertion, Wheezing, Hemoptysis, Pleuritic Pain, Sputum, Wheezing, Other Cardiovascular: No: Chest Pain, Palpitations, Orthopnea, Paroxysmal Noc. Dyspnea, Edema, Lt Headedness, Other Gastrointestinal: Nausea, Vomiting; No: Abdominal Pain, Diarrhea, Constipation, Melena, Hematochezia, Other Genitourinary: No Dysuria, No Frequency, No Incontinence, No Hematuria, No Retention, No Other Musculoskeletal: No: other, neck pain, shoulder pain, arm pain, back pain, hand pain, leg pain, foot pain Skin: No: Rash, Lesions, Jaundice, Bruising, Other Neurological: No: Weakness, Numbness, Incoordination, Change in speech, Confusion, Seizures, Other Allergies: Coded Allergies: Morphine (Verified Allergy, Unknown, 09/25/19) Exam Vital Signs Vital Signs Date Time Temp Pulse Resp B/P (MAP) Pulse Ox O2 Delivery O2 Flow Rate FiO2 07/04/24 20:32 98.2 88 17 124/71 (88) 97 98.2 07/04/24 10:12 Room Air General Appearance: Alert, Oriented X3, Cooperative, No acute distress HEENT: Atraumatic, PERRLA, EOMI, Mucous membr. moist/pink Respiratory: Clear to auscultation, Normal air movement Cardiovascular: Regular rate, Normal S1, Normal S2 Abdominal: Normal bowel sounds, Soft, No tenderness Extremities: No edema Skin: No rashes, No breakdown Neuro: Normal gait, Normal speech, Strength at / X4 ext, Sensation intact Psych/Mental Status: Mental status NL, Mood NL Labs/Xrays Labs Test 07/04/24 13:13 07/04/24 10:20 07/04/24 09:37 Range/Units Lactic Acid Level 1.2 0.4-2.0 mmol/L White Blood Count 8.0 4.4-10.8 10^3/uL Red Blood Count 4.93 4.0-5.20 10^6/uL Hemoglobin 14.5 12.2-16.2 g/dL Hematocrit 42.8 36.0-46.0 % Mean Corpuscular Volume 86.8 80.0-100.0 fL Mean Corpuscular Hemoglobin 29.4 28.0-32.0 pg Mean Corpuscular Hemoglobin Concent 33.8 32.0-36.0 g/dL Red Cell Distribution Width 12.5 11.8-14.3 % Platelet Count 341 140-450 10^3/uL Mean Platelet Volume 7.9 6.9-10.8 fL Neutrophils (%) (Auto) 64.3 37.0-80.0 % Lymphocytes (%) (Auto) 30.1 10.0-50.0 % Monocytes (%) (Auto) 3.8 0.0-12.0 % Eosinophils (%) (Auto) 1.0 0.0-7.0 % Basophils (%) (Auto) 0.8 0.0-2.0 % Neutrophils # (Auto) 5.2 1.6-8.6 10 ^3/uL Lymphocytes # (Auto) 2.4 0.4-5.4 10 ^3/uL Monocytes # (Auto) 0.3 0-1.3 10 ^3/uL Eosinophils # (Auto) 0.1 0-0.8 10 ^3/uL Basophils # (Auto) 0.1 0-0.2 10 ^3/uL Nucleated Red Blood Cells 0.1 % Sodium Level 137 136-145 mmol/L Potassium Level 3.9 3.5-5.1 mmol/L Chloride Level 102 98-107 mmol/L Carbon Dioxide Level 26 20-31 mmol/L Anion Gap 9 5-15 Blood Urea Nitrogen 9 9-23 mg/dL Creatinine 0.84 0.550-1.02 mg/dL Glomerular Filtration Rate Calc 89 >90 mL/min BUN/Creatinine Ratio 10.7 10.0-20.0 Serum Glucose 115 H 74-106 mg/dL Calcium Level 9.7 8.7-10.4 mg/dL C-Reactive Protein High Sensitivity 1.54 H <1.0 mg/dL Urine Color Yellow Yellow Urine Clarity Clear Clear Urine pH 5.0 5.0-9.0 Urine Specific [place] 1.020 1.001-1.035 Urine Protein Negative Negative Urine Ketones Negative Negative Urine Blood Trace H Negative /uL Urine Nitrite Negative Negative Urine Bilirubin Negative Negative Urine Urobilinogen Normal Negative mg/dL Urine Leukocyte Esterase Trace Negative /uL Urine RBC 1 0 - 4 /hpf Urine Microscopic WBC 5 0-5 /HPF Urine Squamous Epithelial Cells Mod <5 /hpf Urine Bacteria None seen None Seen /hpf Urine Mucus Few None Seen Urine Glucose Normal Normal mg/dL Urine Test Negative Negative Assessment/Plan Assessment/Plan Acute intractable headache: Rule out stroke Possible migraine Ruled out giant cell arteritis; ESR 9 - head CT: No acute intracranial abnormality - IV NS at 150 cc/hour - sumatriptan 6 mg once - Tylenol as needed - IV Toradol 60 mg once - IV Toradol 15 mg as needed for moderate pain - ordered MRI head History of hypothyroidism, patient states she was incorrectly diagnosed - ordered serum TSH Hypertension, blood pressure currently on the soft side - monitor Obesity - counseled PUD prophylaxis: protonix 40mg DVT prophylaxis: Levonox 40mg Goals of care: Full code, discussed for >16 minutes on 07/04/2024 Plan discussed with patient Plan discussed with Dr. Prince Plan discussed with: Patient, Other (RN) Date of Service: July 04, 2024 Billing Provider: VU PRINCE MD Common Visit Codes: [id number] INP/OBS CARE (HIGH) ROBINSON FRANK RESIDENT July 04, 2024 23:50
[2024-07-05] VITALS (9 sets, daily range): BP systolic 96–136; BP diastolic 55–79; PULSE 77–86; RESP 17–18; TEMP 97.6–98.3; O2SAT 96–100
[2024-07-05] MEDS ORDERED: ONDANSETRON HCL 4 MG/2 ML VIAL IV PRN
[2024-07-05] MEDS: ACETAMINOPHEN 325 MG TAB PO PRN (00:10)
[2024-07-05 05:16] LABS: Basophils # (auto) 0 10 ^3/uL (0-0.2); Basophils % (auto) 0.3 % (0.0-2.0); Eosinophils # (auto) 0.1 10 ^3/uL (0-0.8); Eosinophils % (auto) 1.4 % (0.0-7.0); Hematocrit 39.6 % (36.0-46.0); Hemoglobin 13.7 g/dL (12.2-16.2); Lymphocytes # (auto) 2.5 10 ^3/uL (0.4-5.4); Lymphocytes % (auto) 31.4 % (10.0-50.0); Mean Corpuscular Hgb Conc. 34.7 g/dL (32.0-36.0); Mean Corpuscular Volume 86.3 fL (80.0-100.0); Monocytes # (auto) 0.4 10 ^3/uL (0-1.3); Monocytes % (auto) 5.2 % (0.0-12.0); Neutrophils % (auto) 61.7 % (37.0-80.0); Nucleated Red Blood Cells % 0.2 %; Platelet Count (auto) 321 10^3/uL (140-450); Red Blood Cells 4.59 10^6/uL (4.0-5.20); Red Cell Distribution Width 12.5 % (11.8-14.3)
[2024-07-05 05:26] LABS: Alanine Aminotransferase 14 U/L (7-40); Alkaline Phosphatase 66 U/L (46-116); Anion Gap 9 (5-15); Aspartate Aminotransferase 15 U/L (13-40); BUN/Creatinine Ratio 17.8 (10.0-20.0); Blood Urea Nitrogen 13 mg/dL (9-23); Calcium 9.2 mg/dL (8.7-10.4); Carbon Dioxide 23 mmol/L (20-31); Glucose 103 mg/dL (74-106); Potassium 3.8 mmol/L (3.5-5.1); Sodium 139 mmol/L (136-145); Total Protein 6.7 g/dL (5.7-8.2)
[2024-07-05 05:27] LABS: Bilirubin, Total 0.3 mg/dL (0.2-1.0); Chloride 107 mmol/L (98-107)
[2024-07-05 05:49] LABS: Erythrocyte Sedimentation Rate 9 mm/hr (0-20)
[2024-07-05] MEDS: ENOXAPARIN SOD 40 MG/0.4 ML SYRINGE SC SCH (10:00)
[2024-07-05] MEDS: LORazepam 2MG/ML-1ML VIAL IV ONE (10:26)
[2024-07-05] MEDS: PANTOPRAZOLE 40 MG/10 ML VIAL INJ IV SCH (11:41)
[2024-07-05] MEDS: KETOROLAC TROMETH 30 MG/ML 1ML VIAL IV PRN (12:05)
--- NOTE | 2024-07-05 13:03 | DVH ---
EXAM: MRI BRAIN HEAD WO CONTRAST HISTORY: headache w facial numbness , headache w facial numbness, TECHNIQUE: Multiplanar and multisequence MR imaging of the head was performed. COMPARISON: CT head from 07/04/2024 FINDINGS: The ventricles and subarachnoid spaces are normal in size and configuration. Brain parenchyma is norm al in signal. There is no midline shift or mass effect. The vascular flow-voids are unremarkable. Dif fusion weighted imaging is not indicative of acute or recent infarct. IMPRESSION: No acute abnormality. No acute or recent infarct.
--- NOTE | 2024-07-05 17:06 | DVHDS2 ---
Discharge Summary Date of Admission July 04, 2024 at 23:48 Date of Discharge: July 05, 2024 Labs/Diagnostic Data: Laboratory Results Test 07/05/24 04:23 07/04/24 13:13 07/04/24 10:20 07/04/24 09:37 White Blood Count 8.0 10^3/uL (4.4-10.8) Red Blood Count 4.59 10^6/uL (4.0-5.20) Hemoglobin 13.7 g/dL (12.2-16.2) Hematocrit 39.6 % (36.0-46.0) Mean Corpuscular Volume 86.3 fL (80.0-100.0) Mean Corpuscular Hemoglobin 30.0 pg (28.0-32.0) Mean Corpuscular Hemoglobin Concent 34.7 g/dL (32.0-36.0) Red Cell Distribution Width 12.5 % (11.8-14.3) Platelet Count 321 10^3/uL (140-450) Mean Platelet Volume 8.4 fL (6.9-10.8) Neutrophils (%) (Auto) 61.7 % (37.0-80.0) Lymphocytes (%) (Auto) 31.4 % (10.0-50.0) Monocytes (%) (Auto) 5.2 % (0.0-12.0) Eosinophils (%) (Auto) 1.4 % (0.0-7.0) Basophils (%) (Auto) 0.3 % (0.0-2.0) Neutrophils # (Auto) 5.0 10 ^3/uL (1.6-8.6) Lymphocytes # (Auto) 2.5 10 ^3/uL (0.4-5.4) Monocytes # (Auto) 0.4 10 ^3/uL (0-1.3) Eosinophils # (Auto) 0.1 10 ^3/uL (0-0.8) Basophils # (Auto) 0 10 ^3/uL (0-0.2) Nucleated Red Blood Cells 0.2 % Erythrocyte Sedimentation Rate 9 mm/hr (0-20) Sodium Level 139 mmol/L (136-145) Potassium Level 3.8 mmol/L (3.5-5.1) Chloride Level 107 mmol/L (98-107) Carbon Dioxide Level 23 mmol/L (20-31) Anion Gap 9 (5-15) Blood Urea Nitrogen 13 mg/dL (9-23) Creatinine 0.73 mg/dL (0.550-1.02) Glomerular Filtration Rate Calc 106 mL/min (>90) BUN/Creatinine Ratio 17.8 (10.0-20.0) Serum Glucose 103 mg/dL (74-106) Calcium Level 9.2 mg/dL (8.7-10.4) Total Bilirubin 0.3 mg/dL (0.2-1.0) Aspartate Amino Transferase (AST) 15 U/L (13-40) Alanine Aminotransferase (ALT) 14 U/L (7-40) Alkaline Phosphatase 66 U/L (46-116) Total Protein 6.7 g/dL (5.7-8.2) Albumin 4.0 g/dL (3.2-4.8) Thyroid Stimulating Hormone (TSH) 1.73 uIU/mL (0.55-4.78) Lactic Acid Level 1.2 mmol/L (0.4-2.0) C-Reactive Protein High Sensitivity 1.54 mg/dL (<1.0) Urine Color Yellow (Yellow) Urine Clarity Clear (Clear) Urine pH 5.0 (5.0-9.0) Urine Specific [place] 1.020 (1.001-1.035) Urine Protein Negative (Negative) Urine Ketones Negative (Negative) Urine Blood Trace /uL (Negative) Urine Nitrite Negative (Negative) Urine Bilirubin Negative (Negative) Urine Urobilinogen Normal mg/dL (Negative) Urine Leukocyte Esterase Trace /uL (Negative) Urine RBC 1 /hpf (0 - 4) Urine Microscopic WBC 5 /HPF (0-5) Urine Squamous Epithelial Cells Mod /hpf (<5) Urine Bacteria None seen /hpf (None Seen) Urine Mucus Few (None Seen) Urine Glucose Normal mg/dL (Normal) Urine Test Negative (Negative) Other Laboratory Tests 07/05/24 04:23 Brief Hx & Hospital Course: Patient is a 39-year-old female with past medical history of hypothyroidism and hypertension who comes in due to headache. According to the patient she has been having a headache for the last 3 days which started when she was shopping at the store, associated with hot flashes and feeling faint. Patient denies having similar symptoms in the past. Patient notes the Tylenol, Motrin and Advil did not help her pain, sleeping makes the pain worse and pain is also associated with generalized weakness, photosensitivity and multiple episodes of vomiting. On review of systems patient is complaining of fatigue, fever, chills, nausea and vomiting. Head CT was largely unremarkable. On admission patient was noted to have a lactic acid level of 11.4 which was down to 1.2 within 2 hours. Patient does not have any nuchal rigidity, however, notes mild soreness at the base of neck on flexion of the neck. Upon re-evaluation a couple hours later, patient also noted to have a throbbing pain along her right lateral face. Patient will be admitted for further management. MRI negative lactic acid resolved Condition at Discharge: Good Final Diagnosis/Problems List migraine headaches Discharge Disposition: Home Discharge Instruct/Medications Diet: Regular Activity: No Restrictions, As Tolerated Follow Up/Referral: PCP in 7 days Medications: home meds Discharge Statement: "Patient was advised to return to the ER or call 911 if any headaches, dizziness, shortness of breath, chest pain, abdominal pain, bleeding, fevers, or worsening of medical condition. Patient was counseled about treatment plan, medications, possible side effects, patientverbalized understanding. All questions were answered to the best of my ability. This discharge took greater then 30 minutes in planning, reviewing documentation, counseling the patient, and discussing with other team members." ASSESSMENT ASSESSMENT Assessment migraine headaches Date of Service: July 05, 2024 Billing Provider: LAURENCE PARDO MD Common Visit Codes: 11754-UPQ/OBS DISCH DAY >30min LAURENCE PARDO MD July 05, 2024 17:06
== END 2024-07-05 18:42 | disposition home or self-care (01) | DRG 103 ==
LOC: ER 09:28 → OVERFLOW 23:48 → WEST WING 07-05 01:13
PROVIDERS: ATTEND Nurse Practitioner Adult Health
DX: G43.901 Migraine, unspecified, not intractable, with status migrainosus (principal); Z68.41 Body mass index [BMI] 40.0-44.9, adult; I10 Essential (primary) hypertension; E03.9 Hypothyroidism, unspecified; E66.9 Obesity, unspecified; R50.9 Fever, unspecified; Z88.5 Allergy status to narcotic agent
CPT/HCPCS: 36415; 70450; 70551; 71046; 80048; 80053; 81001; 81025; 83605; 84443; 85025; 85652; 86141; 87040; 87077; 87186; 96360; 96372; G0378; J1885; J2470